=== PATIENT | female | born 1995 | race Hispanic/Latino ===

== ENCOUNTER 2017-08-24 02:20 | Day surgery (SDC) | payer OTHER ==
[2017-08-24 03:18] VITALS: BMI 33.5
--- NOTE | 2017-08-24 04:36 | PRG ---
DATE OF SERVICE: 08/24/2017 TIME OF EVALUATION: 0400 hours. LOCATION: At Labor and Delivery. This is the patient of Dr. Agarwal from the [facility] REASON FOR EVALUATION: Pelvic pressure and right lower back pain in a 33-week . HISTORY OF PRESENT ILLNESS: This patient is a 22-year-old 5, para 2 who is at 33 weeks' and 2 days, who sees Dr. Agarwal at the [facility]. She states that she had discomfort since 08/23/2017, at approximately 0700 with lower back pain and came in today for evaluation. This is cl ose to 20 hours after first onset. She denies contractions, vaginal bleeding, or leakage of fluids. She denies any recent trauma. She denies headaches or visual changes. She has good movemen t. She denies dysuria. REVIEW OF SYSTEMS: Complete review of systems was checked and is otherwise negative unless specifie d in the HPI. OBSTETRIC HISTORY: Significant for spontaneous vaginal delivery in 2013 and 2014. She has had 2 mi scarriages in 2016. ALLERGIES: Allergies are none. PAST SURGICAL HISTORY: Appendectomy as a child. PHYSICAL EXAMINATION: VITAL SIGNS: On physical exam, she is afebrile with a temperature of 97.8 and blood pressure of 106 /59. Clinically, she is in no acute distress. ABDOMEN: Soft, nontender, no palpable contractions. She does have mild discomfort on right costove rtebral angle palpation. heart tones/nonstress test shows heart tones in the 130s to 140s with accelerations and moderate variability. Tocodynamometer has no contraction pattern. heart tones are reassuring . ASSESSMENT: This is a multigravida at 33 weeks' and 2 days with nonspecific lower right back pain a nd she is afebrile. PLAN: 1. I have ordered a cath UA to rule out early pyelonephritis, even though she is afebrile. 2. I have ordered a complete metabolic profile. 3. I have ordered a complete blood count. 4. I have ordered a vaginitis panel 3 to rule out any other source of discomfort. 5. There is no evidence of labor at this time. 6. We will await evaluation from these tests for now.
[2017-08-24 04:58] LABS: #Eosinphils 0.1 thou/uL (0.0-0.7); #Lymphocytes 2.1 thou/uL (1.20-3.40); #Monocytes 0.4 thou/uL (0.11-0.59); #Neutrophils 4.3 thou/uL (1.40-6.50); %Basophils 0.5 % (0.0-1.0); %Lymphocytes 30.2 % (21.0-51.0); %Monocytes 6.3 % (0.0-10.0); Hematocrit 31.2 % (36.0-47.0); Mean Platelet Volume 7.2 fL (7.4-10.4); Red Blood Cell (RBC) Count 3.45 mill/uL (4.20-5.40)
[2017-08-24 04:59] LABS: Bilirubin Negative (Negative); Blood, Urine Negative (Negative); Glucose, Urine (Dipstick) Negative (Negative); Ketone, Urine Negative (Negative); Nitrite Negative (Negative); Protein, Urine (Dipstick) Negative (Neg-Trace)
[2017-08-24 05:35] LABS: ALT (SGPT) 10 U/L (8-55); AST (SGOT) 25 U/L (5-34); Alkaline Phosphatase 94 U/L (40-150); Anion Gap 13 mmol/L (10-20); BUN (Urea Nitrogen) 6 mg/dL (7.0-18.7); Bilirubin, Total Less than 0.2 mg/dL (0.2-1.2); Calc. Creatinine Clearance 213 mL/min (70-130); Calcium 8.6 mg/dL (7.8-10.44); Carbon Dioxide 21 mmol/L (22-29); Chloride 106 mmol/L (98-107); Estimated GFR-MDRD Greater than 90; Globulin 3.8 g/dL (2.4-3.5)
--- NOTE | 2017-08-24 08:24 | PRG ---
DATE OF SERVICE: 08/24/2017 TIME: 07:40 LABORATORY FOLLOWUP: In brief, the patient has had her CBC, CMP, and cath UA to return all with normal findings. Additio djea, she has remained afebrile and normotensive while she has stayed here. I performed a cervical exam on 06/02/2017 and found her cervix to be closed, thick, and high. There is no vaginal bleedin g or evidence of rupture of membranes on exam. We are still awaiting a vaginitis panel III test, wh ich per lab will still take about another 45 minutes to return. We have explained this to the patie nt. She has an appointment tomorrow at [facility], and therefore, she wishes to be discharged brady e and follow up the results of her VPIII tomorrow at [facility]. DIAGNOSES: 1. Discomforts of . 2. Reactive nonstress test. 3. No evidence of labor at this time. Disposition is to home with follow up at [facility] tomorrow and Saturday to follow up the results o f her vaginitis panel III.
== END 2017-08-24 07:47 | disposition home or self-care (01) ==
LOC: L&D/OP 02:20
PROVIDERS: ATTEND Student in an Organized Health Care Education/Training Program
DX: O26.893 Other specified pregnancy related conditions, third trimester (principal); M54.5 Low back pain; Z79.899 Other long term (current) drug therapy; Z3A.33 33 weeks gestation of pregnancy; Z90.49 Acquired absence of other specified parts of digestive tract; Z87.59 Personal history of other complications of pregnancy, childbirth and the puerperium
CPT/HCPCS: 80053; 81003; 85025; 87480; 87510; 87660; 96360; 96361

== ENCOUNTER 2017-09-24 22:09 | Day surgery (SDC) | payer OTHER ==
[2017-09-24 22:41] VITALS: BMI 35.2
--- NOTE | 2017-09-24 23:02 | PDOC.LDHP ---
Labor and Delivery H&P Chief complaint: contractions HPI: 22 y/o at 37w5d, patient of Dr. Alfaro at , presents with contractions. She reports they started this morning, then stopped. Then restarted again this evening and have been every 5 minutes. Denies VB, LOF, decreased FM or other concerns. Was 2 cm in clinic last week. ROS neg for HEENT, CV, pulm, GI, , neuro, psych, skin, musculoskeletal, or constitutional symptoms other than mentioned above. OB History Details: 2 prior term SVDs Current complications: none Past Medical History: None Current medications: pre-ranjit vitamins Previous surgical history: appendectomy Allergies/Adverse Reactions: Allergies Allergy/AdvReac Type Severity Reaction Status Date / Time No Known Allergies Allergy Verified 09/24/17 22:36 Social history: none - Physical Exam Vital signs reviewed and normal: yes General: NAD, resting Lungs: nonlabored breathing Abdomen: gravid Extremeties: no edema FHT: category 1 (120s, mod variability, + accels, no decels) Lluveras contractions every: 5 mins - Vaginal Exam cm dilated: 2 Effacement: 50% Station: -3 - Assessment 22 y/o at 37w5d with no e/o active labor. status reassuring with reactive NST. - Plan -: D/c home with precautions. Advised to keep all appointments and continue daily activity counts.
== END 2017-09-24 23:08 | disposition home or self-care (01) ==
LOC: L&D/OP 22:09
PROVIDERS: ATTEND Obstetrics & Gynecology
DX: O47.1 False labor at or after 37 completed weeks of gestation (principal); Z3A.37 37 weeks gestation of pregnancy; Z79.899 Other long term (current) drug therapy

== ENCOUNTER 2017-10-03 05:30 | Inpatient (IN) | payer OTHER ==
[2017-10-03 06:32] VITALS: BMI 35.3
[2017-10-03] MEDS: Lactated Ringer's 1,000 ML IV SCH ×3 (06:51→12:58)
[2017-10-03 07:20] LABS: Hematocrit 30.4 % (36.0-47.0); Mean Platelet Volume 7.6 fL (7.4-10.4); Red Blood Cell (RBC) Count 3.46 mill/uL (4.20-5.40); White Blood Cell (WBC) Count 6.4 thou/uL (4.8-10.8)
[2017-10-03] MEDS ORDERED: Ondansetron HCl/PF 4 MG/2 ML Vial IVP PRN ×3 (07:40→21:44)
[2017-10-03] MEDS ORDERED: Diphenoxylate HCl/Atropine Tablet PO PRN (07:40)
[2017-10-03] MEDS ORDERED: HYDROcodone/Acetaminophen 5/325 mg Tablet PO PRN ×2 (07:40→21:44)
[2017-10-03] MEDS ORDERED: LR / Pitocin 40 units/1000 ml 1,000 ML IV PRN (07:40)
[2017-10-03] MEDS ORDERED: Misoprostol 200 MCG TAB PR PRN (07:40)
[2017-10-03] MEDS ORDERED: Promethazine HCl 25 MG/ML VIAL IM PRN ×2 (07:40→10:06)
[2017-10-03] MEDS ORDERED: Carboprost 250 MCG/ML AMP IM PRN (07:40)
[2017-10-03] MEDS ORDERED: Ibuprofen 800 MG TAB PO PRN (07:40)
[2017-10-03] MEDS ORDERED: Lidocaine 1% (PF) 30 ML VIAL SC PRN (07:40)
[2017-10-03] MEDS ORDERED: Acetaminophen 500 MG TAB PO PRN (07:40)
[2017-10-03] MEDS ORDERED: LR 500 ML/Oxytocin 10 units 500 ML IV SCH (07:45)
[2017-10-03] MEDS ORDERED: Fentanyl 4 mcg/Marc 0.1% Cadd 100 ML ONE (08:35)
[2017-10-03] MEDS ORDERED: Naloxone HCl 0.4 mg/ml Vial IVP PRN ×2 (10:06)
[2017-10-03] MEDS ORDERED: Lactated Ringer's 500 ML IV PRN (10:06)
[2017-10-03] MEDS ORDERED: Acetaminophen 325 MG TAB PO PRN (10:06)
[2017-10-03] MEDS ORDERED: Eucerin (Mineral Oil/Petrolatum,White) 30 gm Jar TOP PRN (10:06)
[2017-10-03] MEDS ORDERED: diphenhydrAMINE 50 MG/ML VIAL IVP PRN (10:06)
[2017-10-03] MEDS ORDERED: ePHEDrine/0.9% NaCl/PF SYRINGE 50 mg/10 ml SLOW IVP PRN (10:06)
[2017-10-03] MEDS ORDERED: Fentanyl 4mcg/Marcaine 0.1% Cassette 100 ML EPIDURAL SCH (10:15)
[2017-10-03] MEDS ORDERED: Communication Order-Pharmacy FS SCH (10:15)
[2017-10-03] MEDS ORDERED: LR / Pitocin 40 units/1000 ml 1,000 ML ONE (17:07)
--- NOTE | 2017-10-03 18:21 | PDOC.OPDEL ---
OB Operative/Delivery Note Delivery Dr/Surgeon: FRANCISCO JAVIER Assist: n/a Pre-Delivery Diagnosis: elective induction Procedure/Post Delivery Dx: spontaneous vaginal delivery Weeks gestation: 39 Anesthesia: epidural - Findings A Sex: male Weight: 7 lb 7 oz - 1 min: 8 - 5 min: 9 - Additional Findings/Plan Placenta delivered: spontaneous Repaired Obstetrical Laceration: none Estimated blood loss: 200 Compilations/Other Findings: moderate meconium, terminal bradycardia, phuong team present Post delivery plan: routine recovery
[2017-10-03] MEDS ORDERED: Bupivacaine/Epinephrine 0.25% 30 ML VIAL ONE (19:42)
[2017-10-03] MEDS ORDERED: Adacel (T-DAP) 0.5 ML VIAL IM ONE (21:44)
[2017-10-03] MEDS ORDERED: diphenhydrAMINE 25 MG CAP PO PRN (21:44)
[2017-10-03] MEDS ORDERED: Preparation H Ointment 28 GM TUBE PR PRN (21:44)
[2017-10-03] MEDS ORDERED: Benzocaine/Menthol 20-0.5% 60 ML CAN TOP PRN (21:44)
[2017-10-03] MEDS ORDERED: Lanolin Ointment 7 GM TUBE TOP PRN (21:44)
[2017-10-03] MEDS ORDERED: LR / Pitocin 40 units/1000 ml 1,000 ML IV SCH (21:44)
[2017-10-03] MEDS ORDERED: Milk Of Magnesia 30 ML UDCUP PO PRN (21:44)
[2017-10-03] MEDS ORDERED: Bisacodyl 10 MG SUPP PR PRN (21:44)
[2017-10-03] MEDS: Ibuprofen 800 MG TAB PO SCH (22:43)
[2017-10-04] MEDS: HYDROcodone/Acetaminophen 5/325 mg Tablet PO PRN ×2 (00:35→08:47)
[2017-10-04] MEDS: Ibuprofen 800 MG TAB PO SCH ×2 (05:28→13:30)
[2017-10-04 05:44] LABS: Hematocrit 28.6 % (36.0-47.0); Mean Platelet Volume 7.8 fL (7.4-10.4); Red Blood Cell (RBC) Count 3.18 mill/uL (4.20-5.40); White Blood Cell (WBC) Count 9.7 thou/uL (4.8-10.8)
[2017-10-04] MEDS: Ferrous Sulfate 325 MG TAB PO SCH ×2 (08:48→18:25)
[2017-10-04] MEDS ORDERED: Prenatal Vitamin 1 TAB PO SCH (09:00)
[2017-10-04] MEDS ORDERED: Docusate (Surfak) 240 MG CAP PO SCH (09:00)
--- NOTE | 2017-10-04 11:37 | PDOC.PP ---
Post Progress Note Post Day #: 1 PO intake tolerated: yes Flatus: yes Ambulation: yes Vital Signs (12 hours) Temp Pulse Resp BP Pulse Ox 10/04/17 07:50 98.5 F 67 18 10/04/17 05:33 74 16 91/50 L 96 10/04/17 05:17 98.9 F 75 16 10/04/17 00:06 98.9 F 75 16 98/55 L 97 Weight Weight 181 lb - Physical Examination General: NAD Cardiovascular: RRR Respiratory: non-labored breathing Abdominal: no distention, appropriately TTP Fundus firm & at: umb Skin: no rash Psychiatric: normal affect Result Diagrams: 10/04/17 05:24 Additional Labs: Post Labs Hep Bs Antigen Non-Reactive S/CO (NonReactive) 10/03/17 06:51 (1) Term Code(s): Z34.80 - ENCOUNTER FOR SUPRVSN OF NORMAL , UNSP TRIMESTER Status: Acute - Assessment/Plan VSSAF Doing well, lochia = menses, pain controlled Rh pos RImm Cont PNV with iron on DC for mild chronic iron deficiency anemia Home tomorrow, FU 4wk at [facility]
[2017-10-04 15:44] VITALS: BP 100/51; TEMP 98.4
[2017-10-04] MEDS ORDERED: Sodium Chloride 0.9% 0 ML ONE (18:17)
== END 2017-10-04 19:23 | disposition home or self-care (01) | DRG 775 ==
LOC: L&D 05:53 → 3SE 23:35
PROVIDERS: ADMIT Student in an Organized Health Care Education/Training Program; ATTEND Student in an Organized Health Care Education/Training Program
PROC: 10E0XZZ Delivery of Products of Conception, External Approach (ICD-10-PCS; principal; 2017-10-03)
PROC: 4A0HXCZ Measurement of Products of Conception, Cardiac Rate, External Approach (ICD-10-PCS; 2017-10-03)
DX: O77.0 Labor and delivery complicated by meconium in amniotic fluid (principal); D50.9 Iron deficiency anemia, unspecified; O99.02 Anemia complicating childbirth; O76 Abnormality in fetal heart rate and rhythm complicating labor and delivery; Z37.0 Single live birth; Z3A.39 39 weeks gestation of pregnancy
CPT/HCPCS: 36415; 85027; 86780; 87340; 87389; A4216; J1200; J2001; J7120

== ENCOUNTER 2017-11-13 06:08 | Emergency (ER) | payer OTHER | END 2017-11-13 08:03 | disposition home or self-care (01) | LOC: ERS 06:08 | DX: J11.1 Influenza due to unidentified influenza virus with other respiratory manifestations (principal) | CPT/HCPCS: 99283 ==

== ENCOUNTER 2018-01-12 21:32 | Emergency (ER) | payer OTHER, SELFPAY ==
[2018-01-12] MEDS ORDERED: Ketorolac Tromethamine 30 MG/ML VIAL ONE (22:03)
== END 2018-01-12 22:28 | disposition home or self-care (01) ==
LOC: ERS 21:32
DX: K02.9 Dental caries, unspecified (principal)
CPT/HCPCS: 96372; J1885